=== PATIENT | female | born 1995 | race Two or more races ===

== ENCOUNTER → 2018-10-04 | Outpatient (CLI) | payer OTHER ==
--- NOTE | 2018-10-04 15:53 | WOMENS IMAGING REPORT ---
EXAM DESCRIPTION: U/S BREAST UNILAT LIMITED COMPLETED DATE/TIME: 10/04/2018 10:06 am REASON FOR STUDY: N63.10 RIGHT BREAST LUMP N63.10 UNSPECIFIED LUMP IN THE RIGHT BREAST, UNSPECIFIED ANDREW COMPARISON: None. TECHNIQUE: Real-time and static grayscale imaging performed of the right breast targeted to the area of clinical concern. Selected color Doppler images recorded. LIMITATIONS: None. FINDINGS: Patient indicates a palpable abnormality in the right breast upper outer quadrant 11 o'fe ck position. Ultrasound of this area demonstrates a a solid well-circumscribed hypoechoic nodule with good acousti c through transmission, and minimal internal color flow likely a benign fibroadenoma. This measures 2.5 x 2.4 x 1.2 cm in size. Clinical follow-up recommended. Immediately adjacent to the fibroadenoma, and anechoic simple cyst is present at the 11 o'clock posit ion right breast, 6 x 4 mm in size. IMPRESSION: Palpable abnormality correlates with a benign-appearing fibroadenoma. Clinical follow-u p recommended. BIRAD: 2 Benign findings. RECOMMENDATION: RECOMMENDED FOLLOW-UP: Follow-up as clinically indicated. COMMENT: The [employer] ([employer]) has developed recommendations for screening MRI of the breasts in certain patient populations, to be used in conjunction with mammography. Breast MRI s urveillance may be appropriate for women with more than 20% lifetime risk of developing breast cancer as determined by genetic testing, significant family history of the disease, or history of mantle r adiation for Hodgkins Disease. [employer] Practice Guidelines 2008. TECHNICAL DOCUMENTATION: JOB ID: [id number] [employer]- All Rights Reserved Reading location - IP/workstation name: [email or web address]
== END ==
LOC: WI 09:31
PROVIDERS: ATTEND Physician Assistant
DX: D24.1 Benign neoplasm of right breast (principal)
CPT/HCPCS: 76642